=== PATIENT | female | born 1990 | race Caucasian/White ===

== ENCOUNTER 2022-05-25 05:09 | Day surgery (SDC) | payer OTHER ==
[2022-05-25] VITALS (11 sets, daily range): BP systolic 100–116; BP diastolic 61–80; PULSE 70–96; TEMP 97.8–99
[~2022-05-25] VITALS: Wt 53.1 kg
[2022-05-25] MEDS ORDERED: COLLAGEN (05:38)
[2022-05-25] MEDS ORDERED: PROZAC60 MG PO (05:38)
[2022-05-25] MEDS ORDERED: IRON (05:38)
[2022-05-25] MEDS ORDERED: [UNRECOGNIZED DRUG - REMARK] (05:39)
[2022-05-25] MEDS ORDERED: MULTIVITAMIN200 MCG PO (05:39)
--- NOTE | 2022-05-25 06:02 | NUR ---
0530 - PT admitted [place] [facility] [place] [facility] via ambulation w/ and small child; height and weight obtained. PT oriented to room and call whitney. VSS. Medications, HX, and allergies reviewed with the PT, who is a good historian for medical and surgical history. PT states desire to keep in contacts, RN provided free case if needed. Procedure verified and consent signed; PT verbalized understanding procedure and signed the consent. PT voided prior to changing into clean gown at 0550. Call whitney remains within reach. PT states currently taking Iron, however, cannot recall dosage for supplements.
--- NOTE | 2022-05-25 06:09 | NUR ---
0605 - PT signed HCG refusal form and verbalized understanding the form; PT provided with mesh panty and two sanitary pads per request. PT is changing in bathroom.
--- NOTE | 2022-05-25 06:33 | NUR ---
0615 - IV started in L hand on first attempt with 18G; IVF scanned and are infusing without difficulty. T&S obtained from site and sent to lab via tech prior to fluids. PT states nausea; emisis bag provided, however, no vomiting noted. Warm blankets partially removed and cool towel provided. PT states some relief.
--- NOTE | 2022-05-25 06:35 | NUR ---
Lungs CTA. HR RRR. Bowel sounds normoactive x4. Radial pulses 2+ bilat. Cap refill <3 seconds bilat. PT denies pain.
--- NOTE | 2022-05-25 07:19 | NUR ---
PT was taken back to the OR by OR, RN.
[2022-05-25] MEDS ORDERED: MOTRIN 800800 MG/TAB PO (07:21)
[2022-05-25] MEDS ORDERED: PERCOCET 325 MG1 TA2 PO (07:21)
--- NOTE | 2022-05-25 10:25 | NUR ---
PT TRANSPORTED TO 221 ON BED. ALERT AND ORIENTED X 4. VITAL SIGNS WNL. INCISIONS CLEAN DRY AND INTACT X 4. SCANT AMT OF BLOOD NOTED ON [place] PAD. PT ORIENTED TO ROOM. PLAN OF CARE DISCUSSED. CALL LIGHT WITHIN REACH.
--- NOTE | 2022-05-25 13:28 | NUR ---
RESTS QUIETLY WITH EYES CLOSED COOPER CATHETER WITH GOOD URINE OUTPUT
[2022-05-26 04:06] VITALS: BP 114/77; PULSE 79; TEMP 98.7
[2022-05-26 08:15] VITALS: BP 117/76; PULSE 74; TEMP 98.4
--- NOTE | 2022-05-26 09:59 | NUR ---
PT HAS DC ORDER. VOIDED AFTER REMOVAL OF COOPER. PAIN IN TOLERABLE AT THIS TIME. MINIMAL BLEEDING INCISION ARE C/D/I. UP AMBULATING WITHOUT DIFFICULTY AND GOOD APPEITITE. NEEDS ARE MET. RIDE IS ON THE WAY.
--- NOTE | 2022-05-26 10:18 | NUR ---
Initial visit; Patient thanked Tax Accounting Assistant for offering God's blessings and a get well message for her.
--- NOTE | 2022-05-26 10:53 | NUR ---
1015- DC TO HOME. IV REMOVED. WHEELED TO FRONT LOBBY WITHOUT INCIDENT AND ALL BELONGINGS.
== END 2022-05-26 10:15 | disposition home or self-care (01) ==
LOC: SDCO 05:09 → OB 10:30 → SDCO 05-26 10:15
DX: N73.6 Female pelvic peritoneal adhesions (postinfective) (principal)
CPT/HCPCS: OP; A4314; J0690; J1100; J1885; J2175; J2405; J2704; J2710; J3010; J7120